=== PATIENT | male | born 1980 | race Caucasian/White ===

== ENCOUNTER → 2021-12-03 09:37 | Outpatient (BNV) | payer MEDICARE, MEDICAID, SELFPAY | PROVIDERS: PCP Family Medicine; Referring Provider Family Medicine; Visit Provider Internal Medicine Medical Oncology | DX: Z85.71 Personal history of Hodgkin lymphoma (principal); Z13.0 Encounter for screening for diseases of the blood and blood-forming organs and certain disorders involving the immune mechanism | CPT/HCPCS: 99204; 99213 ==

== ENCOUNTER 2022-01-17 11:13 | Outpatient (REF) | payer MEDICARE, MEDICAID, SELFPAY ==
[2022-01-17 13:55] LABS: MANUAL DIFF FLAG NO
[2022-01-17 14:03] LABS: Basophils Absolute Auto 0.1 X10*3/uL (0.0-0.2); Eosinophils Percent Auto 16.6 % (0-4); Hematocrit 46.4 % (42.0-52.0); Hemoglobin 15.8 g/dl (14.0-18.0); Imm Gran Abs Auto 0.02 X10*3/uL (0.00-0.03); Imm Gran Pct Auto 0.3 % (0.0-0.4); Lymphocytes Absolute Auto 1.2 X10*3/uL (1.2-4.9); Mean Corpuscular HGB Conc 34.1 g/dl (31.0-36.0); Mean Corpuscular Hemoglobin 28.2 pg (27.0-33.0); Mean Corpuscular Volume 82.9 fL (80.0-98.0); Monocytes Absolute Auto 0.6 X10*3/uL (0.1-1.2); Monocytes Percent Auto 9.9 % (2-11); Neutrophils Percent Auto 51.2 % (45-73); Platelet Count 249 X10*3/uL (160-400); Red Cell Distribution Width 11.9 % (11.0-16.0); White Blood Count 5.9 X10*3/uL (4.8-10.8)
[2022-01-17 14:19] LABS: Alanine Aminotransferase 26 U/L (0-40); Albumin Level 4.5 g/dL (3.5-5.0); Alkaline Phosphatase 65 U/L (39-117); Anion Gap 16 (12-20); Aspartate Amino Transferase 21 U/L (5-37); Bilirubin Total 0.5 mg/dL (0.0-1.0); Blood Urea Nitrogen 17 mg/dL (9-16); Calcium 9.3 mg/dL (8.4-10.2); Carbon Dioxide 25 mmol/L (22-29); Chloride 103 mmol/L (96-108); Cholesterol 203 mg/dL; Estimated Glomerular Filt Rate > 60; Glucose Fasting 92 mg/dL (60-99); HDL Cholesterol 40 mg/dL; LDL Cholesterol Calculated 137 mg/dl; Potassium 3.9 mmol/L (3.3-5.1); Sodium 140 mmol/L (135-145); Total Protein 7.6 g/dL (6.5-8.0); Triglycerides 130 mg/dL
[2022-01-17 14:42] LABS: Prostate Specific Antigen Scr 0.36 ng/mL (<0.05-4.0); TSH reflex Free T4 8.04 uIU/mL (0.32-4.0)
[2022-01-17 15:22] LABS: Free T4 (Free Thyroxine) 1.04 ng/dL (0.71-1.85)
== END 2022-01-17 11:14 | disposition home or self-care (01) ==
LOC: HO.WFDLDS 11:13
PROVIDERS: Visit Provider Family Medicine
DX: Z00.00 Encounter for general adult medical examination without abnormal findings (principal); Z12.5 Encounter for screening for malignant neoplasm of prostate
CPT/HCPCS: 36415; 80053; 80061; 84153; 84439; 84443; 85025

== ENCOUNTER 2022-01-20 11:20 | Outpatient (REF) | payer MEDICARE, MEDICAID, SELFPAY ==
[2022-01-20 11:40] LABS: Appearance Urine Turbid; Color Urine Yellow; Glucose Urine UA Negative (Negative); Leukocyte Esterase Urine Negative (Negative); Nitrite Urine Negative (Negative); PH 5.5 (5.0-9.0); Specific Gravity - Urine >= 1.030 (1.005-1.025); Urine Blood Negative (Negative); Urine Ketones Negative (Negative); Urine Protein Negative (Neg-Trace)
== END 2022-01-20 11:21 | disposition home or self-care (01) ==
LOC: HO.LNP 11:20
PROVIDERS: Visit Provider Family Medicine
DX: Z00.00 Encounter for general adult medical examination without abnormal findings (principal)
CPT/HCPCS: 81003

== ENCOUNTER 2022-01-24 10:02 | Outpatient (REF) | payer MEDICARE, MEDICAID, SELFPAY ==
[2022-01-24 12:24] LABS: Free T4 (Free Thyroxine) 0.97 ng/dL (0.71-1.85); Thyroid Stimulating Hormone 5.58 uIU/mL (0.32-4.0)
[2022-01-25 21:52] LABS: Triiodothyronine T3 Total 139 ng/dL (76-181)
== END 2022-01-24 10:03 | disposition home or self-care (01) ==
LOC: HO.WFDLDS 10:02
PROVIDERS: Visit Provider Family Medicine
DX: E03.9 Hypothyroidism, unspecified (principal)
CPT/HCPCS: 36415; 84439; 84443; 84480

== ENCOUNTER 2022-02-03 16:13 | Outpatient (REF) | payer MEDICARE, MEDICAID, SELFPAY ==
[2022-02-04 13:22] LABS: Influenza A PCR NEGATIVE (Negative); Influenza B PCR NEGATIVE (Negative); Resp Syncy Virus RNA Qual PCR NEGATIVE (Negative); SARS COV2 PCR INHOUSE NEGATIVE (Negative)
== END 2022-02-03 16:14 | disposition home or self-care (01) ==
LOC: HO.LAB 16:13
PROVIDERS: Visit Provider Nurse Practitioner Family
DX: Z20.822 Contact with and (suspected) exposure to COVID-19 (principal); R09.89 Other specified symptoms and signs involving the circulatory and respiratory systems
CPT/HCPCS: 0241U

== ENCOUNTER 2022-04-05 09:30 | Outpatient (REF) | payer MEDICARE, MEDICAID, SELFPAY ==
[2022-04-05 12:23] LABS: Lipase 22 U/L (8-78)
[2022-04-05 12:32] LABS: Free T4 (Free Thyroxine) 0.97 ng/dL (0.71-1.85); Thyroid Stimulating Hormone 11.11 uIU/mL (0.32-4.0)
[2022-04-07 07:18] LABS: Triiodothyronine T3 Total 126 ng/dL (76-181)
== END 2022-04-05 09:31 | disposition home or self-care (01) ==
LOC: HO.WFDLDS 09:30
PROVIDERS: Visit Provider Family Medicine
DX: E03.9 Hypothyroidism, unspecified (principal); R19.5 Other fecal abnormalities
CPT/HCPCS: 36415; 83690; 84439; 84443; 84480

== ENCOUNTER 2022-05-10 10:12 | Outpatient (REF) | payer MEDICARE, MEDICAID, SELFPAY ==
--- NOTE | ~2022-05-10 | US_ITS ---
EXAMINATION: US ABDOMEN LIMITED CLINICAL INFORMATION: Intra-abdominal and pelvic swelling, mass and lump, unspecified. COMPARISON: None TECHNIQUE: Real-time imaging of the left upper quadrant, inferior to the left costal margin. FINDINGS: Limited ultrasound imaging through the left upper quadrant abdominal wall reveals no visible mass, fluid collection or abnormal vascularity. US/US abdomen limited IMPRESSION: Unremarkable limited left upper quadrant abdominal ultrasound.
== END 2022-05-10 10:13 | disposition home or self-care (01) ==
LOC: HO.US 10:12
PROVIDERS: Visit Provider Family Medicine
DX: R19.00 Intra-abdominal and pelvic swelling, mass and lump, unspecified site (principal)
CPT/HCPCS: 76705

== ENCOUNTER 2022-06-14 14:11 | Outpatient (REF) | payer MEDICARE, MEDICAID, SELFPAY ==
--- NOTE | ~2022-06-14 | CT_ITS ---
EXAMINATION: CT SOFT TISSUE NECK WITH CONTRAST CLINICAL INFORMATION: Right-sided postauricular adenopathy. COMPARISON: None available. TECHNIQUE: Multidetector helical imaging was performed in the axial plane following the administration of 60 mL of Omnipaque 350 intravenous contrast. Multiple axial reformats and coronal/sagittal reconstructions were created the technologist workstation for review. This CT examination was performed using dose optimization techniques as appropriate, variously including the following: *Automated exposure control. *Adjustment of mA and/or kV according to patient size (this includes techniques or standardized protocols for targeted exams where dose is matched to indication/reason for exam; i.e. extremities or head). *Use of iterative reconstruction technique. DLP: 805 mGy-cm FINDINGS: No significant cutaneous thickening or subcutaneous inflammation. No discrete fluid collection within the deep tissues of the neck. The premaxillary, retromaxillary, pterygopalatine fossa, orbital apical, parapharyngeal, and prelaryngeal adipose tissue is maintained. Normal appearance of the parotid, submandibular, and thyroid glands. Scattered subcentimeter lymph nodes bilaterally, none of which are pathologically enlarged or abnormally enhancing. No demonstrated focal lesion or abnormal enhancement within the intrinsic tissues of the tongue or floor of mouth. Normal mucosal contours of the pharynx and larynx without abnormal enhancement. Normal appearance of the hyoid bone, thyroid cartilage, or cartilaginous trachea. The airways remains widely patent. No radiopaque foreign bodies. The atlantooccipital and atlantoaxial articulations remain well aligned. There is anatomic alignment of the vertebral bodies and posterior elements. No evidence of acute fracture or subluxation of the cervical spine. The vertebral body heights are maintained. Moderate degenerative disc disease at C5-C6 with disc-osteophyte complex formation. The remaining intervertebral disc spaces are maintained. No evidence of epidural collection. There is no prevertebral soft tissue swelling. Normal opacification of the cervical arterial and venous structures. The visualized portion of the skull base is without significant abnormalities. No demonstrated significant soft tissue abnormalities in the periauricular distributions. Mild to moderate mucosal thickening of the paranasal sinuses. Mild leftward nasal septal deviation. The mastoid air cells and middle ear cavities are clear. No demonstrated significant periapical odontogenic disease. CT Upper Chest: The visualized lung apices and upper mediastinum are within normal limits. CT/CT soft tissue neck w IV con IMPRESSION: No demonstrated focal lesion, collection, pathologically enlarged lymphadenopathy, or abnormal enhancement within the soft tissues of the neck.
[2022-06-14] MEDS: iohexoL 350 MG/ML 100 ML INFUS..BTL IV (14:59)
== END 2022-06-14 14:12 | disposition home or self-care (01) ==
LOC: HO.CT 14:11
PROVIDERS: PCP Family Medicine; Visit Provider Internal Medicine Medical Oncology
DX: Z85.71 Personal history of Hodgkin lymphoma (principal)
CPT/HCPCS: 70491; Q9967

== ENCOUNTER 2022-08-08 08:47 | Outpatient (REF) | payer MEDICARE, MEDICAID, SELFPAY ==
[2022-08-08 11:24] LABS: MANUAL DIFF FLAG NO
[2022-08-08 11:54] LABS: Basophils Percent Auto 0.6 % (0-2); Eosinophils Absolute Auto 0.7 X10*3/uL (0.0-0.4); Eosinophils Percent Auto 10.6 % (0-4); Hematocrit 46.1 % (42.0-52.0); Hemoglobin 15.5 g/dl (14.0-18.0); Imm Gran Abs Auto 0.02 X10*3/uL (0.00-0.03); Imm Gran Pct Auto 0.3 % (0.0-0.4); Lymphocytes Absolute Auto 1.3 X10*3/uL (1.2-4.9); Lymphocytes Percent Auto 19.4 % (20-40); Mean Corpuscular HGB Conc 33.6 g/dl (31.0-36.0); Mean Corpuscular Hemoglobin 28.6 pg (27.0-33.0); Mean Corpuscular Volume 85.1 fL (80.0-98.0); Monocytes Absolute Auto 0.6 X10*3/uL (0.1-1.2); Monocytes Percent Auto 8.9 % (2-11); Neutrophils Absolute Auto 3.9 x10*3/uL (2.0-8.3); Neutrophils Percent Auto 60.2 % (45-73); Platelet Count 252 X10*3/uL (160-400); Red Blood Count 5.42 X10*6/uL (4.60-5.80); Red Cell Distribution Width 12.2 % (11.0-16.0); White Blood Count 6.4 X10*3/uL (4.8-10.8)
[2022-08-08 12:32] LABS: Alanine Aminotransferase 28 U/L (0-40); Albumin Level 4.4 g/dL (3.5-5.0); Alkaline Phosphatase 57 U/L (39-117); Anion Gap 11 (12-20); Aspartate Amino Transferase 20 U/L (5-37); Bilirubin Total 0.6 mg/dL (0.0-1.0); Blood Urea Nitrogen 23 mg/dL (9-16); Calcium 9.2 mg/dL (8.4-10.2); Carbon Dioxide 26 mmol/L (22-29); Chloride 107 mmol/L (96-108); Estimated Glomerular Filt Rate > 60; Glucose Random 94 mg/dL (60-115); Potassium 3.9 mmol/L (3.3-5.1); Sodium 140 mmol/L (135-145); Total Protein 7.2 g/dL (6.5-8.0)
[2022-08-08 12:35] LABS: Free T4 (Free Thyroxine) 0.97 ng/dL (0.71-1.85); Thyroid Stimulating Hormone 5.73 uIU/mL (0.32-4.0)
[2022-08-09 07:53] LABS: Triiodothyronine T3 Total 116 ng/dL (76-181)
== END 2022-08-08 08:48 | disposition home or self-care (01) ==
LOC: HO.WFDLDS 08:47
PROVIDERS: Visit Provider Family Medicine
DX: Z00.00 Encounter for general adult medical examination without abnormal findings (principal); E03.9 Hypothyroidism, unspecified
CPT/HCPCS: 36415; 80053; 84439; 84443; 84480; 85025

== ENCOUNTER 2023-01-18 12:21 | Outpatient (REF) | payer MEDICARE, MEDICAID, SELFPAY ==
[2023-01-18 14:49] LABS: Thyroid Stimulating Hormone 5.08 uIU/mL (0.32-4.0)
[2023-01-20 02:14] LABS: Triiodothyronine T3 Total 119 ng/dL (76-181)
== END 2023-01-18 12:22 | disposition home or self-care (01) ==
LOC: HO.WFDLDS 12:21
PROVIDERS: Visit Provider Family Medicine
DX: E03.9 Hypothyroidism, unspecified (principal)
CPT/HCPCS: 36415; 84439; 84443; 84480

== ENCOUNTER 2023-01-18 12:31 | Outpatient (AMB) | payer MEDICARE, MEDICAID, SELFPAY ==
--- NOTE | 2023-01-18 12:37 | A.OFFPC_ITS ---
Vital Signs 01/18/23 12:38 Height 5 ft 10 in Weight 203 lb 2 oz BMI 29.1 BP 126/62 Blood Pressure Location Rt brachial Position Sitting Respiration 14 Pulse 98 Pulse Source Pulse Oximeter Temp 99.6 F Temp Source Temporal Artery Scan Pulse Oximetry (%) 98 Oxygen Delivery Method Room Air Intake Visit Reasons: sinus pressure, congestion, red itchy eyes Intake Note: Patient reports he has sinus pressure, congestion, red, itching and watering eyes, bilateral ears feel clogged and patient reports his nose feels stuffy as well. Patient reports these symptoms have been ongoing for about 7-10 days. Patient has tried Zytrec OTC with no relief. 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: No Accompanied by: Self / Same As Patient Allergies No Known Allergies Allergy (Verified 01/18/23 13:03) Medication List - Last Reconciled 01/18/23 by Estella Hayward CNP cetirizine (Zyrtec) 10 mg PO DAILY 30 days clotrimazole-betamethasone 1-0.05 % 1 appl topical BID 2 weeks fluticasone propionate 50 mcg/actuation (Flonase Allergy Relief) 1 spray intranasal Q12H levothyroxine 75 mcg PO DAILY 30 days trazodone 100 mg PO BEDTIME PRN Tobacco use date assessed: 01/18/23 HPI HPI Comments History of Present Illness Details 42-year-old male presents with complaint s of sinus pressure and congestion, red, itching, watery eyes, nasal congestion, and clogged right ear. He notes his symptoms have been ongoing for the past 7-10 days and refractory to OTC Zyrtec. Zyrtec have been effective in the past. His symptoms have been interfering with his sleep. He denies sick contacts. [facility] Medical History Hodgkin's lymphoma Surgical History Cornea replaced by transplant History of parotidectomy History of surgical removal of meniscus of knee Family History Maternal Grandmother Breast cancer Cervical cancer Paternal Grandfather Colon cancer Other Mental health disorder Social History Household Members: None Housing: Apartment Are you a primary patient care director to a significant other at home: No Do you presently have visiting nurse or other home services: No Patient Tobacco Use Status: Former Tobacco user e-Cigarette/Vaping Use: Never Used Second Hand Smoke Exposure: No service: No Current occupational status: disabled Current occupational exposures/hazards: No Cognitive needs: No Hearing needs: No Vision needs: No Questionnaire Thrive Questionnaire Date Thrive assessed: 10/26/21 SPIKE-7 AMB Questionnaire SPIKE-7 Date SPIKE - 7 assessed: 01/24/22 Source: Developed by Drs. Aamir Fitzgerald, Vanna Peters, Jelani Fox and colleagues, with an educational percy from [employer]. Review of Systems Const Details: Const Denies chills, Denies fatigue, Denies fever(s), Denies headache(s) and Denies weakness ENT Reports as per HPI Card Denies chest pain, Denies lightheadedness, Denies dyspnea and Denies other (Palpitations) Resp Denies cough, Denies dyspnea, Denies wheezing and Denies other ( shortness of breath) GI Denies abdominal pain, Denies melena, Denies hematochezia, Denies change in bowel habits, Denies dyspepsia and Denies nausea Denies hematuria and Denies dysuria Musc Denies abnormal gait, Denies myalgias, Denies arthralgias, Denies numbness and Denies tingling Skin/Breast Denies rash, Denies unusual bruising and Denies wounds Neuro Denies abnormal gait, Denies dizziness, Denies headache(s), Denies memory loss, Denies numbness, Denies Sensory deficit (Neuro), Denies tingling and Denies weakness Psych Denies anxiety, Denies depression, Denies memory loss Endo Denies cold intolerance, Denies fatigue, Denies heat intolerance, Denies polydipsia and Denies polyuria Aller/Immun Denies wheezing Physical exam (Primary Care) Vital Signs: Last Vital Signs Temp 99.6 F 01/18/23 12:38 Pulse 98 01/18/23 12:38 Resp 14 01/18/23 12:38 BP 126/62 01/18/23 12:38 Pulse Ox 98 01/18/23 12:38 Oxygen Delivery Method Room Air 01/18/23 12:38 BMI result Body Mass Index 29.1 Tobacco/Smoking Status: Tobacco use Status Tobacco use date assessed 01/18/23 01/18/23 12:45 Patient Tobacco Use Status Former Tobacco user 01/18/23 12:38 e-Cigarette/Vaping Use Never Used 01/18/23 12:38 Thrive Assessment: Date of Thrive Assessment Date Thrive assessed 10/26/21 01/18/23 12:38 Const Other: General: no acute distress and well developed Nutritional Appearance: well nourished Orientation/consciousness: patient oriented x3 HENMT Head is normocephalic Impacted cerumen to both ears occluding the TMs Nasal turbinates and oropharynx are pink and moist Sinuses are nontender with palpation No auricular or cervical lymphadenopathy Eyes General: appearance normal, both eyes and all related structures except for slight erythema to both conjunctiva Pupils: Equal, round and reactive pupils present EOM: EOMs intact bilaterally Resp Effort & Inspection: normal respiratory effort Auscultation: clear to auscultation bilaterally Cardio Rate: regular rate Rhythm: regular rhythm Heart sounds: S1 normal heart sound present, S2 normal heart sound present, no gallops, no murmurs and no rubs GI Palpation (GI): No Abdominal aortic bruit present, Soft to palpation, nontender, No hepatosplenomegaly present and No Rebound tenderness present Auscultation: normal bowel sounds General: Yes no CVA tenderness Back/Spine/Pelvis Back: no CVA tenderness Cervical Spine: cervical ROM normal and No Cervical spine tenderness Thoracic/Lumbar Spine: thoraco-lumbar ROM normal, No pain with thoraco-lumbar ROM, No thoracic spinal tenderness and No lumbar spinal tenderness Extrem General: Yes normal to inspection, No edema and No calf tenderness Skin General: warm and dry. Normal skin color. Normal skin turgor Lesions: no lesions Rashes: no rashes Trauma: no lacerations or abrasions Wounds: no wounds Nails: normal Neuro General: patient oriented x3, gait normal and no focal neuro deficit Cranial nerves: Yes Equal, round and reactive pupils present Cognition (Neuro): normal cognition Gait exam (Neuro): Normal gait present Sensory Exam: No Sensory deficit (Neuro) Psych Appearance: grossly normal Affect: normal affect Attitude: cooperative Thought process: Normal thought process present Assessment and Plan Assessment & Plan (1) Seasonal allergies: Code(s): J30.2 - Other seasonal allergic rhinitis Plan: Likely viral allergies though possible viral No exam evidence of bacterial infection Xyzal and Flonase as prescribed Rest Hydrate well -?Drink plenty of fluids.? Especially water. Tylenol or ibuprofen for muscle aches, headache, fever/discomfort Return with worsening or new symptoms Verbalized understanding and agreed with treatment plan. (2) Impacted cerumen of both ears: Code(s): H61.23 - Impacted cerumen, bilateral Plan: Impacted cerumen to both ears occluding the TMs Impaired right hearing is likely attributed to this Debrox ordered. Use as prescribed May return for cerumen removal if symptoms does not improve Verbalized understanding and agreed with treatment plan. Medications: New carbamide peroxide 6.5% (Debrox) 5 drps otic (ears) DAILY 4 days 15 mL 0RF levocetirizine (Xyzal) 5 mg PO DAILY 30 tabs 2RF 30 days Refilled fluticasone propionate 50 mcg/actuation (Flonase Allergy Relief) administer into each nostril 1 spray intranasal Q12H 16 grams 2RF Discontinued cetirizine (Zyrtec) Discontinued Reason: Doctor's Order 10 mg PO DAILY 30 tabs 0RF 30 days Coding Level of Care Code Est Pt Level 3 (33930) Diagnoses Seasonal allergies J30.2 Impacted cerumen of both ears H61.23
[2023-01-18 12:38] VITALS: BP 126/62; PULSE 98; RESP 14; TEMP 37.6; O2SAT 98; BMI 29.1
== END 2023-01-18 13:30 | disposition home or self-care (01) ==
PROVIDERS: PCP Family Medicine; Visit Provider Nurse Practitioner Family
DX: J30.2 Other seasonal allergic rhinitis (principal); H61.23 Impacted cerumen, bilateral
CPT/HCPCS: 99213

== ENCOUNTER 2023-01-27 14:20 | Outpatient (AMB) | payer MEDICARE, MEDICAID, SELFPAY ==
--- NOTE | 2023-01-27 13:53 | MHC.PC.OV ---
Intake Visit Reasons: f/u hypothyroidism Intake Note: Patient is here to follow up on hypothyroid today. He is concerned about hemorrhoids bleeding, he states it happens on and off. He would also like a refill of Clotrimazole and Betamethasone cream. Allergies No Known Allergies Allergy (Verified 01/27/23 13:54) Tobacco use date assessed: 01/27/23 Dental Screening Dental Screen Date: 01/27/23 Did you have a dental visit in the last 12 months?: Yes Did you have a dental problem in the last 6 months where you did not have access to dental care?: No Was dental information given to patient?: Patient has dentist HPI f/u hypothyroidism HPI Details 42 y/o male presents to f/u hypothyroidism via telemedicine. Labs were drawn 01/18/23. Reviewed labs with pt. TSH level improved from 5.73 to 5.08 uIU/mL but still elevated. He is on levothyroxine 75 mcg daily. Pt reports he has been worried about blood in stools. Pt states he does not have a GI specialist. [facility] Medical History (Updated 01/27/23 @ 13:58 by Yuli Bhandari [facility]) Hemorrhoids Hodgkin's lymphoma Surgical History History of parotidectomy Cornea replaced by transplant History of surgical removal of meniscus of knee Family History Maternal Grandmother Breast cancer Cervical cancer Paternal Grandfather Colon cancer Other Mental health disorder Social History Household Members: None Housing: Apartment Are you a primary home care attendant to a significant other at home: No Do you presently have visiting nurse or other home services: No Patient Tobacco Use Status: Former Tobacco user e-Cigarette/Vaping Use: Never Used Second Hand Smoke Exposure: No service: No Current occupational status: disabled Current occupational exposures/hazards: No Cognitive needs: No Hearing needs: No Vision needs: No Questionnaire Thrive Questionnaire Date Thrive assessed: 10/26/21 SPIKE-7 AMB Questionnaire SPIKE-7 Date SPIKE - 7 assessed: 01/24/22 Source: Developed by Drs. Aamir Fitzgerald, Vanna Peters, Jelani Fox and colleagues, with an educational percy from [employer]. Physical exam (Primary Care) Tobacco/Smoking Status: Tobacco use Status Tobacco use date assessed 01/27/23 01/27/23 13:56 Patient Tobacco Use Status Former Tobacco user 01/27/23 13:56 e-Cigarette/Vaping Use Never Used 01/27/23 13:56 Thrive Assessment: Date of Thrive Assessment Date Thrive assessed 10/26/21 01/27/23 13:56 Telehealth Telehealth Location of provider rendering services: practice address Location of patient: address on file Patient Identification confirmed using: Name, : Yes Telehealth method: voice only Patient verbally consented to treatment: Yes Patient verbally consented to billing insurance company: Yes Patient informed of any privacy concerns related to visit: Yes Minutes spent on Phone/Video with Pt.: 9 Assessment and Plan Assessment & Plan (1) Hypothyroidism: Code(s): E03.9 - Hypothyroidism, unspecified Plan: TSH is still elevated after increasing levothyroxine from 50 mcg to 75 mcg. Minimal change in fact. Will increase Levothyroxine to 100 mcg daily Repeat thyroid hormone levels in 2 months (2) Blood in stool: Code(s): K92.1 - Melena Plan: Referred to GI (3) Bloody stools: Code(s): K92.1 - Melena Orders: Orders Triiodothyronine T3 Total Today E03.9 - Hypothyroidism, unspecified Thyroid Stimulating Hormone Today E03.9 - Hypothyroidism, unspecified Free T4 (Free Thyroxine) Today E03.9 - Hypothyroidism, unspecified Basic Metabolic Panel Today E03.9 - Hypothyroidism, unspecified, Z00.00 - Encounter for general adult medical examination without abnormal findings Referrals Gastroenterology Referral K92.1 - Melena Medications: Changed From levothyroxine 75 mcg PO DAILY 30 days 30 tabs 2RF E03.9 - Hypothyroidism, unspecified To levothyroxine 100 mcg PO DAILY 30 days 30 tabs 2RF E03.9 - Hypothyroidism, unspecified Coding Level of Care Code Tele Est Pt Level 2 (19333) Diagnoses Hypothyroidism E03.9 Blood in stool K92.1 Bloody stools K92.1
== END 2023-01-27 15:00 ==
LOC: HO.HMGFM 14:20
PROVIDERS: PCP Family Medicine; Visit Provider Family Medicine
DX: E03.9 Hypothyroidism, unspecified (principal); K92.1 Melena
CPT/HCPCS: 99441

== ENCOUNTER 2023-02-08 13:40 | Outpatient (AMB) | payer MEDICARE, MEDICAID, SELFPAY ==
--- NOTE | 2023-02-08 13:49 | MHC.OFFVIS ---
Intake Vital Signs 02/08/23 13:51 Height 5 ft 10 in Weight 200 lb 9.93 oz BMI 28.8 BP 118/65 Blood Pressure Location Lt brachial Position Sitting Pulse 104 H Intake Visit Reasons: melena Intake Note: eDnilson presents in the office as a new patient for melena. CC: He states he is having blood in his stools. When he had a colonoscopy a year ago there was no polyps but he did have hemorrhoids. He has been bleeding every time he goes to the bathroom. Sometimes there is blood clots. Health Information Clerk Required: No Allergies No Known Allergies Allergy (Verified 02/08/23 13:53) HPI HPI Comments History of Present Illness Details This is a 42y.o M with PMH of Hodgkin's lymphoma in remission, anxiety, hypothyroidism who is here for rectal bleeding. Pt reports having intermittent rectal bleeding > a year which he describes as passing fresh blood on defecation. The stool itself is formed and brown. No abd pain, rectal pain or diarrhea with this. Notices an episode at least 1-2 times a month. Was seen at [facility] for the same complaint a year ago and underwent colonoscopy that showed internal hemorrhoids as well as one tubular adenoma but was otherwise normal. Most recent blood work without any anemia. COUNT INCLUDES THE [facility] Medical History (Updated 02/08/23 @ 15:38 by Brittany Denson MD) Hemorrhoids Hodgkin's lymphoma Surgical History Hx of colonoscopy History of parotidectomy Cornea replaced by transplant History of surgical removal of meniscus of knee Family History Maternal Grandmother Breast cancer Cervical cancer Paternal Grandfather Colon cancer Other Mental health disorder Social History Household Members: None Housing: Apartment Are you a primary school childcare attendant to a significant other at home: No Do you presently have visiting nurse or other home services: No Patient Tobacco Use Status: Former Tobacco user e-Cigarette/Vaping Use: Never Used Second Hand Smoke Exposure: No service: No Current occupational status: disabled Current occupational exposures/hazards: No Cognitive needs: No Hearing needs: No Vision needs: No Physical Exam Vital Signs: Last Vital Signs Pulse 104 H 02/08/23 13:51 BP 118/65 02/08/23 13:51 BMI result Body Mass Index 28.8 Gen appear: NAD HEENT: nonicteric, no cervical lymphadenopathy Chest: CTA CVS: Regular S1/S2 Abd: soft, nontender, nondistended, bowel sounds + Rectal deferred as had a colo a year ago with findings above. Ext: no peripheral edema Neuro: A/Ox3, noted to move all extremities spontaneously Psych: interacting appropriately Assessment & Plan Assessment & Plan (1) Bright red rectal bleeding: Code(s): K62.5 - Hemorrhage of anus and rectum (2) Hemorrhoids: Code(s): K64.9 - Unspecified hemorrhoids Plan Reassured pt that in the light of recent colo and clinical presentation, most consistent with hemorrhoidal bleeding. He was also reassured that it appears to be scant/small as he has not developed anemia despite having it intermittently for over a year. Recommendations: - Avoid constipation and straining - Increase hydration and fiber intake - Miralax as needed - Topical lidocaine-hydrocort to be applied OK x 10-14 days at bedtime - Follow up in 4 weeks, if sx persist despite the above, can consider referral to surgery Medications: New lidocaine HCl-hydrocortison ac 3-0.5 % 1 appl OK BEDTIME 14 days 14 grams 0RF polyethylene glycol 3350 (Miralax) 17 grams PO DAILY 238 grams 0RF Coding Level of Care Code New Pt Level 4 (92816) Diagnoses Bright red rectal bleeding K62.5 Hemorrhoids K64.9
[2023-02-08 13:51] VITALS: BP 118/65; PULSE 104; BMI 28.8
== END 2023-02-08 14:15 | disposition home or self-care (01) ==
PROVIDERS: PCP Family Medicine; Visit Provider Internal Medicine
DX: K62.5 Hemorrhage of anus and rectum (principal); K64.9 Unspecified hemorrhoids
CPT/HCPCS: 99204

== ENCOUNTER → 2023-02-08 13:40 | Outpatient (BNVA) | payer MEDICARE, MEDICAID, SELFPAY | PROVIDERS: PCP Family Medicine; Visit Provider Internal Medicine ==

== ENCOUNTER 2023-04-10 12:52 | Outpatient (REF) | payer MEDICARE, MEDICAID, SELFPAY ==
[2023-04-10 15:02] LABS: Anion Gap 12 (12-20); Blood Urea Nitrogen 20 mg/dL (9-16); Calcium 9.7 mg/dL (8.4-10.2); Carbon Dioxide 25 mmol/L (22-29); Chloride 108 mmol/L (96-108); Estimated Glomerular Filt Rate > 60; Glucose Random 111 mg/dL (60-115); Potassium 3.8 mmol/L (3.3-5.1); Sodium 141 mmol/L (135-145)
[2023-04-10 15:18] LABS: Free T4 (Free Thyroxine) 1.12 ng/dL (0.71-1.85)
[2023-04-11 13:04] LABS: Triiodothyronine T3 Total 116 ng/dL (76-181)
== END 2023-04-10 12:53 | disposition home or self-care (01) ==
LOC: HO.WFDLDS 12:52
PROVIDERS: Visit Provider Family Medicine
DX: Z00.00 Encounter for general adult medical examination without abnormal findings (principal); E03.9 Hypothyroidism, unspecified
CPT/HCPCS: 36415; 80048; 84439; 84443; 84480

== ENCOUNTER 2023-06-26 11:39 | Outpatient (AMB) | payer MEDICARE, MEDICAID, SELFPAY ==
[2023-06-26 11:49] VITALS: BP 118/68; PULSE 98; O2SAT 98; BMI 27.7
--- NOTE | 2023-06-26 11:49 | MHC.PC.OV ---
Vital Signs 06/26/23 11:49 Height 5 ft 10 in Weight 193 lb 2 oz BMI 27.7 BP 118/68 Blood Pressure Location Lt brachial Position Sitting Pulse 98 Pulse Oximetry (%) 98 Oxygen Delivery Method Room Air Intake Visit Reasons: follow up thyroid Intake Note: Patient is here for follow up on thyroid test. Patient is concerned about his bleeding hemhorroids, and a growth on his abdomen. Allergies No Known Allergies Allergy (Verified 06/26/23 11:54) Tobacco use date assessed: 06/26/23 Dental Screening Dental Screen Date: 06/26/23 Did you have a dental visit in the last 12 months?: Yes Did you have a dental problem in the last 6 months where you did not have access to dental care?: No Was dental information given to patient?: Patient has dentist HPI follow up thyroid HPI Details 43 y/o male presents to review thyroid hormone levels. Had increased levothyroxine from 50-75 mcg with minimal improvements so had increased this again to 100mcg daily. Labs were drawn 04/10/23. Reviewed labs with pt. TSH level improved from 5.08 to 2.10 uIU/mL. Pt has complaints of bleeding hemorrhoids. [facility] Medical History (Updated 06/26/23 @ 12:08 by Trey Alejandro) Hemorrhoids Hodgkin's lymphoma Surgical History Hx of colonoscopy History of parotidectomy Cornea replaced by transplant History of surgical removal of meniscus of knee Family History Maternal Grandmother Breast cancer Cervical cancer Paternal Grandfather Colon cancer Other Mental health disorder Social History (Updated 04/06/23 @ 12:31 by Gissel Erickson [facility]) Household Members: None Housing: Apartment Are you a primary body care manager to a significant other at home: No Do you presently have visiting nurse or other home services: No Patient Tobacco Use Status: Former Tobacco user e-Cigarette/Vaping Use: Never Used Second Hand Smoke Exposure: No service: No Current occupational status: disabled Current occupational exposures/hazards: No Sexual orientation: Unable to collect Gender identity: Unable to collect Cognitive needs: No Hearing needs: No Vision needs: No Questionnaire PHQ-9 Over the last 2 weeks, how often have you been bothered by any of the following problems? 1. Little interest or pleasure in doing things: nearly every day 2. Feeling down, depressed, or hopeless: several days 3. Trouble falling or staying asleep, or sleeping too much: nearly every day 4. Feeling tired or having little energy: not at all 5. Poor appetite or overeating: nearly every day 6. Feeling bad about yourself - or that you are a failure or have let yourself or your family down: several days 7. Trouble concentrating on things, such as reading the newspaper or watching television: not at all 8. Moving or speaking so slowly that other people could have noticed. Or the opposite - being so fidgety or restless that you have been moving around a lot more than usual: not at all 9. Thoughts that you would be better off or of hurting yourself in some way: not at all Total score: 11 Depression Screening Interpretation: Positive Depression Screening Done: Yes [id number] - PHQ-9 Billing: Yes Source: Developed by Drs. Aamir Fitzgerald, Vanna Peters, Jelani Fox and colleagues, with an educational percy from [employer]. Thrive Questionnaire Date Thrive assessed: 06/26/23 I am a: Patient What is your living situation today?: I have a steady place to live Within the past 12 months, did the food you bought not last and you didn't have the money to get more?: Never true Within the past 12 months, did you worry whether your food would run out before you got money to buy more?: Never true Do you have trouble paying for medicines?: No Do you have trouble getting transportation to medical appointments?: No Do you have trouble paying your heating and electricity bill?: Yes Do you have trouble taking care of your child, family member or friend?: No Do you have trouble with day-to-day activities such as bathing, preparing meals, shopping, managing finances, etc.?: No Are you currently unemployed and looking for a job?: No Are you interested in more education?: No THRIVE Score: 1 AUDIT C Alcohol Use Questionnaire (AUDIT-C) 1. How often do you have a drink containing alcohol?: Monthly or less 2. How many drinks containing alcohol do you have on a typical day when you are drinking?: 5 or 6 3. How often do you have six or more drinks on one occasion?: Less than monthly Total Score: 4 SPIKE-7 AMB Questionnaire SPIKE-7 Date SPIKE - 7 assessed: 06/26/23 Feeling nervous, anxious, or on edge: 1 = Several days Not being able to stop or control worryin = Nearly every day Worrying too much about different things: 3 = Nearly every day Trouble relaxin = Nearly every day Being so restless that it is hard to sit still: 1 = Several days Becoming easily annoyed or irritable: 1 = Several days Feeling afraid as if something awful might happen: 3 = Nearly every day Total SPIKE-7 score (0-4 normal; 5-9 mild; 10-14 moderate; 15-21 severe): 15 Source: Developed by Drs. Aamir Fitzgerald, Vanna Peters, Jelani Fox and colleagues, with an educational percy from [employer]. SPIKE-7 Assessment Billing SPIKE-7 Assessment Tool: SPIKE-7 Assessment 14240 Physical exam (Primary Care) BMI result Body Mass Index 27.7 Tobacco/Smoking Status: Tobacco use Status Tobacco use date assessed 06/26/23 06/26/23 12:04 Patient Tobacco Use Status Former Tobacco user 06/26/23 11:50 e-Cigarette/Vaping Use Never Used 06/26/23 11:50 PHQ-9: PHQ-9 Score PHQ-9: Total score 11 06/26/23 12:04 Depression Screening Interpretation: Positive Thrive Assessment: Date of Thrive Assessment Date Thrive assessed 06/26/23 06/26/23 12:04 Assessment and Plan Assessment & Plan (1) Hypothyroidism: Code(s): E03.9 - Hypothyroidism, unspecified Plan: Thyroid?hormone?labs?all?within?normal?range?now. Continue?levothyroxine?100?mcg?daily (2) Hemorrhoids: Code(s): K64.9 - Unspecified hemorrhoids Plan: Ongoing?hemorrhoids?with?bright?red?blood?per?rectum?and?some?clots. He?has?seen?Gastroenterology?and?follow?their?recommendations?but?he?would?like?more?definitive?care. Referred?to?general?surgeon (3) Anxiety with depression: Code(s): F41.8 - Other specified anxiety disorders Plan: Significant?anxiety?depression. Patient?declines?referral?to?therapy Patient?declines?medication I?let?him?know?that?he?can?readdress?this?at?any?time. Plan Patient?has had?an?ultrasound?for?a?superficial?lump?at?left?abdomen. Ultrasound?did?not?show?any?abnormalities. Re-evaluation?today?with?Valsalva?maneuver shows?that?lump?is?likely?muscle?as?it?does?contract?with?his?abdominal?muscles. He?will?let?me?know?if?this?is?changing?in?some?weight. Orders: Orders Lipid Panel Today Z00.00 - Encounter for general adult medical examination without abnormal findings Microalbumin, Random (w Creat) Today I10 - Essential (primary) hypertension Prostate Specific Antigen Scr Today Z12.5 - Encounter for screening for malignant neoplasm of prostate UA and rflx microscopic Today Z00.00 - Encounter for general adult medical examination without abnormal findings Triiodothyronine T3 Total Today E03.9 - Hypothyroidism, unspecified Thyroid Stimulating Hormone Today E03.9 - Hypothyroidism, unspecified Comprehensive [place]. Panel Fast Today Z00.00 - Encounter for general adult medical examination without abnormal findings Complete Blood Count Auto Diff Today Z00.00 - Encounter for general adult medical examination without abnormal findings Free T4 (Free Thyroxine) Today E03.9 - Hypothyroidism, unspecified Referrals General Surgery Referral K64.9 - Unspecified hemorrhoids Coding Level of Care Code Est Pt Level 4 (41256) Diagnoses Hypothyroidism E03.9 Hemorrhoids K64.9 Anxiety with depression F41.8 Additional Codes SPIKE-7 Assessment Billing - SPIKE-7 Assessment Tool: SPIKE-7 Assessment 54911 ([id number])
== END 2023-06-26 12:22 | disposition home or self-care (01) ==
PROVIDERS: PCP Family Medicine; Visit Provider Family Medicine
DX: E03.9 Hypothyroidism, unspecified (principal); K64.9 Unspecified hemorrhoids; F41.8 Other specified anxiety disorders
CPT/HCPCS: 99214

== ENCOUNTER 2023-07-20 13:56 | Outpatient (AMB) | payer MEDICARE, MEDICAID, SELFPAY ==
--- NOTE | 2023-07-20 14:08 | A.OFFVIS_ITS ---
Intake Vital Signs 07/20/23 14:17 Height 5 ft 10 in Weight 198 lb BMI 28.4 BP 116/68 Blood Pressure Location Rt brachial Position Sitting Pulse 91 Intake Visit Reasons: bleeding hemorrhoids Intake Note: This patient presents for an assessment for bleeding hemorrhoids. On and off for 2 yrs. Patient c/o; moves bowels fine. Denies constipation. Had colonoscopy . Hx of Hodgkin's lymphoma. 2nd concern: nodule on LUQ. Present for 2yrs. Enlarging. Denies pain, tenderness. 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 He describes seeing small amounts of bright blood per rectum on wiping with bowel movements. He does state that for times, there would be a lot of blood and this would be seen on the toilet bowl. This does not happen very often and he says that with this probably once a week. This 1st started maybe about 2-3 years ago. He denies any pain with bowel movements. He denies feeling a lump outside his anus. He denies any constipation. He had a colonoscopy last year which was unremarkable. He has a history of Hodgkin's lymphoma and is being followed by oncologist service He also says that he has a small lump on the abdominal wall on the left side. [facility] Medical History (Updated 07/20/23 @ 14:24 by Kirt Roberto MD) Lipoma of abdominal wall Bleeding hemorrhoids Hemorrhoids Hodgkin's lymphoma Surgical History Hx of colonoscopy History of parotidectomy Cornea replaced by transplant History of surgical removal of meniscus of knee Family History Maternal Grandmother Breast cancer Cervical cancer Paternal Grandfather Colon cancer Other Mental health disorder Social History Household Members: None Housing: Apartment Are you a primary healthcare business analyst to a significant other at home: No Do you presently have visiting nurse or other home services: No Patient Tobacco Use Status: Former Tobacco user e-Cigarette/Vaping Use: Never Used Second Hand Smoke Exposure: No service: No Current occupational status: disabled Current occupational exposures/hazards: No Sexual orientation: Unable to collect Gender identity: Unable to collect Cognitive needs: No Hearing needs: No Vision needs: No Review of Systems Const Denies chills and Denies fever(s) Card Denies chest pain, Denies dyspnea and Denies dyspnea on exertion Resp Denies cough, Denies dyspnea and Denies dyspnea on exertion GI Reports hematochezia and Denies change in bowel habits Denies hematuria and Denies difficulty urinating Musc Denies back pain and Denies limited range of motion Neuro Denies focal weakness and Denies convulsions Psych Denies depression and Denies mood swings Physical Exam Const General: comfortable and no acute distress Orientation/consciousness: patient oriented x3 Neck Neck: Yes no lymphadenopathy Resp Auscultation: clear to auscultation bilaterally Cardio Rhythm: regular rhythm GI Other: Abdominal wall lipoma about 1 cm on left, well defined Palpation (GI): Soft to palpation, nontender and no guarding Neuro General: patient oriented x3 Office Procedures Anoscopy He was in yousif-knife position. The anoscope was gently inserted. A full examination of the anal canal was done. There was note of a prominent hemorrhoidal column, mix of internal external on the right posterior. This seemed to bleed easily. There were no other lesions. There was no ulceration or fissure. There was no induration on digital exam. He had some small hemorrhoids on the left side. [id number] Assessment & Plan Assessment & Plan (1) Bleeding hemorrhoids: Code(s): K64.9 - Unspecified hemorrhoids Plan: Anoscopy shows an internal external hemorrhoidal column on the right posterior. This seems to bleed easily. This is likely source of his blood per rectum. I explained to him the option of proceeding with hemorrhoidectomy. I discussed the risks including but not limited to bleeding and infections as well as postop pain. I explained the benefits and alternatives I also described to him what to expect postoperatively. He says he wants to proceed with hemorrhoidectomy. He says that the bleeding which can be have a times has been bothering him. (2) Lipoma of abdominal wall: Code(s): D17.1 - Benign lipomatous neoplasm of skin and subcutaneous tissue of trunk Plan: He has this small lipomatous mass, about 1 cm in diameter on the abdominal wall on the left side. I explained the technique of excision which may be done under local anesthesia. I reviewed the risks including but not limited to bleeding and infections, as well as the benefits and alternatives. He says he is thinking about having this excised. We will schedule this after his hemorrhoidectomy as an office procedure. Coding Level of Care Code New Pt Level 3 (98141) Diagnoses Bleeding hemorrhoids K64.9 Lipoma of abdominal wall D17.1 CPT Codes Details - CPT: 16536-[id number] ([id number])
[2023-07-20 14:17] VITALS: BP 116/68; PULSE 91; BMI 28.4
== END 2023-07-20 14:55 | disposition home or self-care (01) ==
PROVIDERS: PCP Family Medicine; Visit Provider Surgery
DX: K64.9 Unspecified hemorrhoids (principal); D17.1 Benign lipomatous neoplasm of skin and subcutaneous tissue of trunk
CPT/HCPCS: 46600; 99203

== ENCOUNTER → 2023-07-20 13:56 | Outpatient (BNVA) | payer MEDICARE, MEDICAID, SELFPAY | PROVIDERS: PCP Family Medicine; Visit Provider Surgery | DX: K64.9 Unspecified hemorrhoids (principal); D17.1 Benign lipomatous neoplasm of skin and subcutaneous tissue of trunk | CPT/HCPCS: 46600; 99202 ==

== ENCOUNTER → 2023-08-30 14:14 | Outpatient (BNVA) | payer MEDICARE, MEDICAID, SELFPAY | PROVIDERS: PCP Family Medicine; Visit Provider Surgery ==

== ENCOUNTER 2023-09-07 14:50 | Outpatient (AMB) | payer MEDICARE, MEDICAID, SELFPAY ==
--- NOTE | 2023-09-07 14:50 | A.OFFVIS_ITS ---
Vital Signs 09/07/23 14:55 Height 5 ft 10 in Weight 193 lb BMI 27.7 BP 132/70 Blood Pressure Location Rt brachial Position Sitting Pulse 90 Intake Visit Reasons: re-discuss lipoma asd wall Intake Note: This patient presents for an assessment to re-discuss lipoma of abdominal wall. Pt c/o; reports no complaints. 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 Accompanied by: Self / Same As Patient Allergies No Known Allergies Allergy (Verified 09/07/23 14:55) Medication List - Last Reconciled 09/07/23 by Kirt Roberto MD clotrimazole-betamethasone 1-0.05 % 1 appl topical BID 2 weeks fluticasone propionate 50 mcg/actuation (Flonase Allergy Relief) 1 spray intranasal Q12H levocetirizine (Xyzal) 5 mg PO DAILY 30 days levothyroxine 100 mcg PO DAILY 30 days lidocaine HCl-hydrocortison ac 3-0.5 % 1 appl [place] BEDTIME 14 days trazodone 100 mg PO BEDTIME PRN HPI HPI re-discuss lipoma asd wall: Details: He is here to have his lipoma on the abdominal wall removed. He is worried about this because of a history of lymphoma. He denies any increased in size. He denies any skin changes He was scheduled to have hemorrhoidectomy last month but he held off on this as he says that he is thinking of having a colonoscopy done 1st. [facility] Medical History Lipoma of abdominal wall Bleeding hemorrhoids Hemorrhoids Hodgkin's lymphoma Surgical History Hx of colonoscopy History of parotidectomy Cornea replaced by transplant History of surgical removal of meniscus of knee Family History Maternal Grandmother Breast cancer Cervical cancer Paternal Grandfather Colon cancer Other Mental health disorder Social History Household Members: None Housing: Apartment Are you a primary healthcare interpreter to a significant other at home: No Do you presently have visiting nurse or other home services: No Patient Tobacco Use Status: Former Tobacco user e-Cigarette/Vaping Use: Never Used Second Hand Smoke Exposure: No service: No Current occupational status: disabled Current occupational exposures/hazards: No Sexual orientation: Unable to collect Gender identity: Unable to collect Cognitive needs: No Hearing needs: No Vision needs: No Review of Systems Const Denies chills and Denies fever(s) Card Denies chest pain, Denies dyspnea and Denies dyspnea on exertion Resp Denies cough, Denies dyspnea and Denies dyspnea on exertion GI Denies hematochezia and Denies change in bowel habits Denies hematuria and Denies difficulty urinating Musc Denies back pain and Denies limited range of motion Neuro Denies focal weakness and Denies convulsions Psych Reports anxiety, Denies depression and Denies mood swings Physical Exam Vital Signs: Last Vital Signs Pulse 90 09/07/23 14:55 BP 132/70 09/07/23 14:55 BMI result Body Mass Index 27.7 Const General: comfortable and no acute distress Orientation/consciousness: patient oriented x3 Neck Neck: Yes no lymphadenopathy Resp Auscultation: clear to auscultation bilaterally Cardio Rhythm: regular rhythm GI Other: Small, lipomatous mass may be about 1 cm in size on the abdominal wall on the left side Palpation (GI): Soft to palpation, nontender and no guarding Neuro General: patient oriented x3 Assessment & Plan Assessment & Plan (1) Lipoma of abdominal wall: Code(s): D17.1 - Benign lipomatous neoplasm of skin and subcutaneous tissue of trunk Category: Medical Plan: He has this lipoma on the abdominal wall as described above. He wants this removed. I explained the technique of excision under local anesthesia. I reviewed the risks including but not limited to bleeding and infections, as well as the benefits and alternatives and he wants to proceed. This will be done on his next visit in the office He says he wants to hold off hemorrhoidectomy for now. He what to discuss colonoscopy primary care physician. Coding Level of Care Code Est Pt Level 3 (79950) Diagnoses Lipoma of abdominal wall D17.1
[2023-09-07 14:55] VITALS: BP 132/70; PULSE 90; BMI 27.7
== END 2023-09-07 15:24 | disposition home or self-care (01) ==
PROVIDERS: PCP Family Medicine; Visit Provider Surgery
DX: D17.1 Benign lipomatous neoplasm of skin and subcutaneous tissue of trunk (principal)
CPT/HCPCS: 99213

== ENCOUNTER → 2023-09-07 14:50 | Outpatient (BNVA) | payer MEDICARE, MEDICAID, SELFPAY | PROVIDERS: PCP Family Medicine; Visit Provider Surgery | DX: D17.1 Benign lipomatous neoplasm of skin and subcutaneous tissue of trunk (principal) | CPT/HCPCS: 99212 ==

== ENCOUNTER 2024-04-27 13:01 | Outpatient (REF) | payer MEDICARE, MEDICAID, SELFPAY ==
[2024-04-27 15:11] LABS: MANUAL DIFF FLAG NO
[2024-04-27 15:15] LABS: Basophils Absolute Auto 0.1 X10*3/uL (0.0-0.2); Basophils Percent Auto 1.1 % (0-2); Eosinophils Absolute Auto 0.5 X10*3/uL (0.0-0.4); Eosinophils Percent Auto 10.1 % (0-4); Hematocrit 43.4 % (42.0-52.0); Imm Gran Abs Auto 0.01 X10*3/uL (0.00-0.03); Imm Gran Pct Auto 0.2 % (0.0-0.4); Lymphocytes Absolute Auto 1.2 X10*3/uL (1.2-4.9); Lymphocytes Percent Auto 25.4 % (20-40); Mean Corpuscular HGB Conc 34.6 g/dl (31.0-36.0); Mean Corpuscular Hemoglobin 29.3 pg (27.0-33.0); Mean Corpuscular Volume 84.8 fL (80.0-98.0); Mean Platelet Volume 10.4 fL (9.4-12.4); Monocytes Absolute Auto 0.4 X10*3/uL (0.1-1.2); Monocytes Percent Auto 8.3 % (2-11); Neutrophils Absolute Auto 2.5 x10*3/uL (2.0-8.3); Neutrophils Percent Auto 54.9 % (45-73); Platelet Count 215 X10*3/uL (160-400); Red Blood Count 5.12 X10*6/uL (4.60-5.80); Red Cell Distribution Width 11.9 % (11.0-16.0); White Blood Count 4.6 X10*3/uL (4.8-10.8)
[2024-04-27 15:22] LABS: Appearance Urine Turbid; Color Urine Yellow; Glucose Urine UA Negative (Negative); Leukocyte Esterase Urine Negative (Negative); Nitrite Urine Negative (Negative); PH 5.5 (5.0-9.0); Specific Gravity - Urine >= 1.030 (1.005-1.025); Urine Blood Negative (Negative); Urine Ketones Negative (Negative); Urine Protein Negative (Neg-Trace)
[2024-04-27 15:41] LABS: Albumin Level 4.3 g/dL (3.5-5.0); Anion Gap 13 (12-20); Aspartate Amino Transferase 27 U/L (5-37); Bilirubin Total 0.5 mg/dL (0.0-1.0); Blood Urea Nitrogen 27 mg/dL (9-16); Calcium 9.1 mg/dL (8.4-10.2); Carbon Dioxide 24 mmol/L (22-29); Chloride 110 mmol/L (96-108); Cholesterol 160 mg/dL (<200); Estimated Glomerular Filt Rate > 60; Glucose Fasting 96 mg/dL (60-99); HDL Cholesterol 50 mg/dL (>40); LDL Cholesterol Calculated 97 mg/dL (<100); Potassium 4.1 mmol/L (3.3-5.1); Sodium 143 mmol/L (135-145); Total Protein 7.3 g/dL (6.5-8.0); Triglycerides 65 mg/dL (<150)
[2024-04-27 15:42] LABS: Creatinine Urine 154.35 mg/dL; Microalbum/Creatinine Ratio Ur 6.4 ug/mg cr (<30)
[2024-04-27 15:56] LABS: Prostate Specific Antigen Scr 0.43 ng/mL (<0.05-4.0)
[2024-04-27 15:57] LABS: Free T4 (Free Thyroxine) 1.44 ng/dL (0.71-1.85); Thyroid Stimulating Hormone 0.01 uIU/mL (0.32-4.0)
[2024-04-27 17:10] LABS: Alanine Aminotransferase 24 U/L (0-40); Alkaline Phosphatase 54 U/L (39-117)
[2024-04-29 12:19] LABS: Triiodothyronine T3 Total 161 ng/dL (76-181)
== END 2024-04-27 13:02 | disposition home or self-care (01) ==
LOC: HO.HMGCLDS 13:01
PROVIDERS: PCP Family Medicine; Visit Provider Family Medicine
DX: Z00.00 Encounter for general adult medical examination without abnormal findings (principal); I10 Essential (primary) hypertension; E03.9 Hypothyroidism, unspecified; Z12.5 Encounter for screening for malignant neoplasm of prostate
CPT/HCPCS: 36415; 80053; 80061; 81003; 82043; 82570; 84153; 84439; 84443; 84480; 85025

== ENCOUNTER 2024-04-29 12:04 | Outpatient (AMB) | payer MEDICARE, MEDICAID, SELFPAY ==
--- NOTE | 2024-04-29 12:26 | A.OFFPC_ITS ---
Vital Signs 04/29/24 12:29 Height 5 ft 10 in Weight 186 lb 2 oz BMI 26.7 BP 120/62 Blood Pressure Location Lt brachial Position Sitting Respiration 16 Pulse 79 Pulse Source Pulse Oximeter Temp 97.9 F Temp Source Oral Pulse Oximetry (%) 98 Oxygen Delivery Method Room Air Intake Visit Reasons: PE Intake Note: PE Allergies No Known Allergies Allergy (Verified 04/29/24 12:28) Tobacco use date assessed: 04/29/24 Dental Screening Dental Screen Date: 04/29/24 Did you have a dental visit in the last 12 months?: Yes Did you have a dental problem in the last 6 months where you did not have access to dental care?: No Was dental information given to patient?: Patient has dentist HPI PE HPI Details 43 y/o male presents for an extended exa m with f/u labs and health maintenance. Labs drawn 04/27/24. Reviewed labs with pt. Triglycerides 65. TC 160. LDL 97. HDL 50. TSH low at 0.01. He is on levothyroxine 100mcg daily. Had been following up with gen surgery for hemorrhoids, lipoma of abd. wall. He notes he does not plan to do surgery as he does not experience much symptoms. Gets some exercise. [facility] Medical History (Updated 04/29/24 @ 13:22 by Artie Campbell MD) Lipoma of abdominal wall Bleeding hemorrhoids Hemorrhoids Hodgkin's lymphoma Surgical History (Updated 09/26/23 @ 11:30 by Fina Moreau Greri) Status post excision of lipoma Hx of colonoscopy History of parotidectomy Cornea replaced by transplant History of surgical removal of meniscus of knee Family History Maternal Grandmother Breast cancer Cervical cancer Paternal Grandfather Colon cancer Other Mental health disorder Social History Household Members: None Housing: Apartment Are you a primary career services director to a significant other at home: No Do you presently have visiting nurse or other home services: No Patient Tobacco Use Status: Former Tobacco user e-Cigarette/Vaping Use: Never Used Second Hand Smoke Exposure: No service: No Current occupational status: disabled Current occupational exposures/hazards: No Sexual orientation: Unable to collect Gender identity: Unable to collect Cognitive needs: No Hearing needs: No Vision needs: No Questionnaire PHQ-9 Over the last 2 weeks, how often have you been bothered by any of the following problems? 1. Little interest or pleasure in doing things: not at all 2. Feeling down, depressed, or hopeless: not at all 3. Trouble falling or staying asleep, or sleeping too much: several days 4. Feeling tired or having little energy: several days 5. Poor appetite or overeating: not at all 6. Feeling bad about yourself - or that you are a failure or have let yourself or your family down: not at all 7. Trouble concentrating on things, such as reading the newspaper or watching television: not at all 8. Moving or speaking so slowly that other people could have noticed. Or the opposite - being so fidgety or restless that you have been moving around a lot more than usual: not at all 9. Thoughts that you would be better off or of hurting yourself in some way: not at all Total score: 2 Depression Screening Interpretation: Negative Depression Screening Done: Yes 11569 - PHQ-9 Billing: Yes Source: Developed by Drs. Aamir Fitzgerald, Vanna Peters, Jelani Fox and colleagues, with an educational percy from [employer]. Thrive Questionnaire Date Thrive assessed: 04/29/24 I am a: Patient What is your living situation today?: I have a steady place to live Within the past 12 months, did the food you bought not last and you didn't have the money to get more?: I choose not to answer this question Within the past 12 months, did you worry whether your food would run out before you got money to buy more?: I choose not to answer this question Do you have trouble paying for medicines?: No Do you have trouble getting transportation to medical appointments?: No Do you have trouble paying your heating and electricity bill?: No Do you have trouble taking care of your child, family member or friend?: No Do you have trouble with day-to-day activities such as bathing, preparing meals, shopping, managing finances, etc.?: No Are you currently unemployed and looking for a job?: I choose not to answer this question Are you interested in more education?: I choose not to answer this question Please select the resources that you would like help with: None Currently or been in a relationship where the following occur: No concerns reported THRIVE Score: 0 AUDIT C Alcohol Use Questionnaire (AUDIT-C) 1. How often do you have a drink containing alcohol?: Never Total Score: 0 SPIKE-7 AMB Questionnaire SPIKE-7 Date SPIKE - 7 assessed: 04/29/24 Feeling nervous, anxious, or on edge: 1 = Several days Not being able to stop or control worryin = Several days Worrying too much about different things: 1 = Several days Trouble relaxin = Several days Being so restless that it is hard to sit still: 1 = Several days Becoming easily annoyed or irritable: 1 = Several days Feeling afraid as if something awful might happen: 1 = Several days Total SPIKE-7 score (0-4 normal; 5-9 mild; 10-14 moderate; 15-21 severe): 7 Source: Developed by Drs. Aamir Fitzgerald, Vanna Peters, Jelani Fox and colleagues, with an educational percy from [employer]. SPIKE-7 Assessment Billing SPIKE-7 Assessment Tool: SPIKE-7 Assessment 16908 Review of Systems Const Denies chills, Denies fatigue, Denies fever(s), Denies headache(s) and Denies weakness Eyes Denies change in vision ENT Denies dizziness, Denies headache(s), Denies hearing loss, Denies nasal congestion, Denies sinus pain, Denies sinus pressure and Denies sore throat Card Denies chest pain, Denies lightheadedness, Denies dyspnea and Denies other (palpitations) Resp Denies cough, Denies dyspnea and Denies wheezing GI Denies abdominal pain, Denies melena, Denies hematochezia, Denies change in bowel habits, Denies dyspepsia and Denies nausea Denies hematuria and Denies dysuria Musc Denies abnormal gait, Denies myalgias, Denies arthralgias, Denies numbness and Denies tingling Skin/Breast Denies rash, Denies unusual bruising and Denies wounds Neuro Denies abnormal gait, Denies dizziness, Denies headache(s), Denies memory loss, Denies numbness, Denies Sensory deficit (Neuro), Denies tingling and Denies weakness Psych Denies anxiety, Denies depression and Denies memory loss Endo Denies cold intolerance, Denies fatigue, Denies heat intolerance, Denies polydipsia and Denies polyuria Roland/Lymph Denies easy bleeding and Denies easy bruising Aller/Immun Denies wheezing Physical exam (Primary Care) Vital Signs: Last Vital Signs Temp 97.9 F 04/29/24 12:29 Pulse 79 04/29/24 12:29 Resp 16 04/29/24 12:29 BP 120/62 04/29/24 12:29 Pulse Ox 98 04/29/24 12:29 Oxygen Delivery Method Room Air 04/29/24 12:29 BMI result Body Mass Index 26.7 Tobacco/Smoking Status: Tobacco use Status Tobacco use date assessed 04/29/24 04/29/24 12:31 Patient Tobacco Use Status Former Tobacco user 04/29/24 12:31 e-Cigarette/Vaping Use Never Used 04/29/24 12:31 PHQ-9: PHQ-9 Score PHQ-9: Total score 2 04/29/24 13:02 Depression Screening Interpretation: Negative Thrive Assessment: Date of Thrive Assessment Date Thrive assessed 04/29/24 04/29/24 12:31 Currently or been in a relationship where the following occur: No concerns reported Const General: no acute distress, well developed, alert and awake Nutritional Appearance: well nourished Orientation/consciousness: patient oriented x3 HENMT Head: Yes normocephalic and Yes atraumatic Ears: hearing grossly normal bilaterally and TM's normal bilaterally General nose exam: Normal external nose present and Normal nares present Mouth: Normal oral and palatal mucosa present and moist mucous membranes Teeth and gingiva: dentition normal Throat: Yes posterior oropharynx normal Eyes General: appearance normal, both eyes and all related structures Pupils: Equal, round and reactive pupils present and Pupil accommodation reflex normal EOM: EOMs intact bilaterally Neck Neck: Yes normal visual inspection, Yes no lymphadenopathy and Yes trachea midline Thyroid: Thyroid normal Carotids: no bruits Lymphatic: no lymphadenopathy noted Chest Chest palpation & inspection: normal inspection of the chest Resp Effort & Inspection: normal respiratory effort Auscultation: clear to auscultation bilaterally Cardio Rate: regular rate Rhythm: regular rhythm Heart sounds: S1 normal heart sound present, S2 normal heart sound present, no gallops, no murmurs and no rubs Bruits: no abdominal aortic bruits and no carotid bruits GI Palpation (GI): No Abdominal aortic bruit present, Soft to palpation, nontender, No hepatosplenomegaly present and No Rebound tenderness present Auscultation: normal bowel sounds General: Yes no CVA tenderness Back/Spine/Pelvis Back: no CVA tenderness Cervical Spine: cervical ROM normal and No Cervical spine tenderness Thoracic/Lumbar Spine: thoraco-lumbar ROM normal, No pain with thoraco-lumbar ROM, No thoracic spinal tenderness and No lumbar spinal tenderness Skin Lesions: no lesions Rashes: no rashes Trauma: no lacerations or abrasions Wounds: no wounds Nails: normal Neuro General: patient oriented x3 Cranial nerves: Yes Equal, round and reactive pupils present Cognition (Neuro): normal cognition Gait exam (Neuro): Normal gait present Motor exam (neuro): 5/5 motor strength present throughout Sensory Exam: No Sensory deficit (Neuro) Deep tendon reflexes (DTR's): Right patellar reflex intensity grade: 2+ and Left patellar reflex intensity grade: 2+ Extrem General: Yes normal to inspection and No edema Psych Appearance: grossly normal Affect: normal affect Attitude: cooperative Thought process: Normal thought process present Coding Level of Care Code Est Pt Level 4 (00956) Diagnoses Hypothyroidism E03.9 Blood in stool K92.1 Cerumen impaction H61.20 Right otitis media H66.91 Screening for prostate cancer Z12.5 Adult general medical exam Z00.00 Additional Codes SPIKE-7 Assessment Billing - SPIKE-7 Assessment Tool: SPIKE-7 Assessment 89335 ([id number]) PHQ-9 - 62412 - PHQ-9 Billing: Yes ([id number]) Assessment & Plan Assessment & Plan (1) Hypothyroidism: Code(s): E03.9 - Hypothyroidism, unspecified Category: Medical Plan: TSH?is?suppressed?though?T4?and?T3?are?okay Will?recheck in?6-8?weeks If?TSH?still?suppressed,?will?ease?up?on?levothyroxine (2) Blood in stool: Code(s): K92.1 - Melena Category: Medical Plan: History?of?hemorrhoids?and?blood?in?stools?likely?due?to?this. Patient?wants?referral?to?GI?to?rule?out?any?other?causes-referral?made Advised?he?well?hydrated?and?keep?stools?soft Follow-up?with?GI (3) Cerumen impaction: Code(s): H61.20 - Impacted cerumen, unspecified ear Category: Medical Plan: Mild?cerumen?impaction?at?right?ear He?has?tried?Debrox?drops Now?s/p?irrigation Wax?removed?but?now?reveals?infection-see?below (4) Right otitis media: Code(s): H66.91 - Otitis media, unspecified, right ear Category: Medical Plan: After?irrigation?of?wax?impaction, Patient?has?erythema to?show?erythema?with?purulent?effusion?behind?membrane Will?send?script?for?amoxicillin. (5) Screening for prostate cancer: Code(s): Z12.5 - Encounter for screening for malignant neoplasm of prostate Category: Medical Plan: PSA?was?within?normal?range Will?continue?annual?screening (6) Adult general medical exam: Code(s): Z00.00 - Encounter for general adult medical examination without abnormal fin dings Category: Medical Plan: 43-year-old?male?presents?for?an?extended?exam Encouraged?healthy?diet?with?active?lifestyle?and?of?exercise Orders: Orders Thyroid Stimulating Hormone Today E03.9 - Hypothyroidism, unspecified Basic Metabolic Panel Today E03.9 - Hypothyroidism, unspecified, Z00.00 - Encounter for general adult medical examination without abnormal findings Triiodothyronine T3 Total Today E03.9 - Hypothyroidism, unspecified Free T4 (Free Thyroxine) Today E03.9 - Hypothyroidism, unspecified Medications: New amoxicillin 500 mg PO Q12H 10 days 20 tabs 0RF Changed From trazodone 100 mg PO BEDTIME PRN 30 tabs 0RF for insomnia To trazodone 100 mg PO BEDTIME 30 days PRN 30 tabs 3RF for insomnia Refilled clotrimazole-betamethasone 1-0.05 % 1 appl topical BID 2 weeks 60 grams 1RF
[2024-04-29 12:29] VITALS: BP 120/62; PULSE 79; RESP 16; TEMP 36.6; O2SAT 98; BMI 26.7
== END 2024-04-29 13:21 | disposition home or self-care (01) ==
PROVIDERS: PCP Family Medicine; Visit Provider Family Medicine
DX: Z00.00 Encounter for general adult medical examination without abnormal findings (principal); E03.9 Hypothyroidism, unspecified; K92.1 Melena; H66.91 Otitis media, unspecified, right ear; K64.9 Unspecified hemorrhoids; H61.21 Impacted cerumen, right ear; Z12.5 Encounter for screening for malignant neoplasm of prostate

== ENCOUNTER → 2024-04-29 12:04 | Outpatient (BNVA) | payer MEDICARE, MEDICAID, SELFPAY | PROVIDERS: PCP Family Medicine; Visit Provider Family Medicine | DX: Z00.00 Encounter for general adult medical examination without abnormal findings (principal); K64.9 Unspecified hemorrhoids; D17.1 Benign lipomatous neoplasm of skin and subcutaneous tissue of trunk; E03.9 Hypothyroidism, unspecified; K92.1 Melena; H61.20 Impacted cerumen, unspecified ear; H66.91 Otitis media, unspecified, right ear; Z12.5 Encounter for screening for malignant neoplasm of prostate | CPT/HCPCS: 96127; 99212; 99396 ==

== ENCOUNTER 2024-06-28 13:27 | Outpatient (REF) | payer MEDICARE, MEDICAID, SELFPAY ==
[2024-06-28 18:02] LABS: Anion Gap 11 (12-20); Blood Urea Nitrogen 23 mg/dL (9-16); Calcium 9.6 mg/dL (8.4-10.2); Carbon Dioxide 26 mmol/L (22-29); Chloride 107 mmol/L (96-108); Estimated Glomerular Filt Rate > 60; Glucose Random 87 mg/dL (60-115); Potassium 4.2 mmol/L (3.3-5.1); Sodium 140 mmol/L (135-145)
[2024-06-28 18:11] LABS: Free T4 (Free Thyroxine) 1.63 ng/dL (0.71-1.85); Thyroid Stimulating Hormone < 0.01 uIU/mL (0.32-4.0)
[2024-06-29 04:22] LABS: Triiodothyronine T3 Total 193 ng/dL (76-181)
== END 2024-06-28 13:28 | disposition home or self-care (01) ==
LOC: HO.WFDLDS 13:27
PROVIDERS: Visit Provider Family Medicine
DX: Z00.00 Encounter for general adult medical examination without abnormal findings (principal); E03.9 Hypothyroidism, unspecified
CPT/HCPCS: 36415; 80048; 84439; 84443; 84480

== ENCOUNTER 2024-07-02 12:49 | Outpatient (AMB) | payer MEDICARE, MEDICAID, SELFPAY ==
--- NOTE | 2024-07-02 12:46 | MHC.PC.OV ---
Intake Visit Reasons: f/u labs via telemedicine Intake Note: lab review Allergies No Known Allergies Allergy (Verified 07/02/24 12:46) Medication List - Last Reconciled 07/02/24 by Artie Campbell MD clotrimazole-betamethasone 1-0.05 % 1 appl topical BID 2 weeks fluticasone propionate 50 mcg/actuation (Flonase Allergy Relief) 1 spray intranasal Q12H levothyroxine 88 mcg PO DAILY 90 days trazodone 100 mg PO BEDTIME PRN 30 days Tobacco use date assessed: 04/29/24 Dental Screening Dental Screen Date: 04/29/24 HPI f/u labs via telemedicine HPI Details Patient?presents?to?follow-up?hypothyroidism?labs. Taking?levothyroxine?100?mcg?daily?as?prescribed. TSH?is?suppressed?and?his?T3?is?elevated. Patient?notes?that?he?has?been?feeling?warmer?lately. Otherwise?feels?well. [facility] Medical History (Updated 04/29/24 @ 13:22 by Artie Campbell MD) Lipoma of abdominal wall Bleeding hemorrhoids Hemorrhoids Hodgkin's lymphoma Surgical History (Updated 09/26/23 @ 11:30 by Fina Moreau Gerri) Status post excision of lipoma Hx of colonoscopy History of parotidectomy Cornea replaced by transplant History of surgical removal of meniscus of knee Family History Maternal Grandmother Breast cancer Cervical cancer Paternal Grandfather Colon cancer Other Mental health disorder Social History Household Members: None Housing: Apartment Are you a primary care assistant to a significant other at home: No Do you presently have visiting nurse or other home services: No Patient Tobacco Use Status: Former Tobacco user e-Cigarette/Vaping Use: Never Used Second Hand Smoke Exposure: No service: No Current occupational status: disabled Current occupational exposures/hazards: No Sexual orientation: Unable to collect Gender identity: Unable to collect Cognitive needs: No Hearing needs: No Vision needs: No Questionnaire Thrive Questionnaire Date Thrive assessed: 04/29/24 I am a: Patient What is your living situation today?: I have a steady place to live Within the past 12 months, did the food you bought not last and you didn't have the money to get more?: I choose not to answer this question Within the past 12 months, did you worry whether your food would run out before you got money to buy more?: I choose not to answer this question Do you have trouble paying for medicines?: No Do you have trouble getting transportation to medical appointments?: No Do you have trouble paying your heating and electricity bill?: No Do you have trouble taking care of your child, family member or friend?: No Do you have trouble with day-to-day activities such as bathing, preparing meals, shopping, managing finances, etc.?: No Are you currently unemployed and looking for a job?: I choose not to answer this question Are you interested in more education?: I choose not to answer this question Please select the resources that you would like help with: None Currently or been in a relationship where the following occur: No concerns reported THRIVE Score: 0 AUDIT C Alcohol Use Questionnaire (AUDIT-C) 2. How many drinks containing alcohol do you have on a typical day when you are drinking?: 5 or 6 3. How often do you have six or more drinks on one occasion?: Less than monthly Total Score: 3 SPIKE-7 AMB Questionnaire SPIKE-7 Date SPIKE - 7 assessed: 04/29/24 Source: Developed by Drs. Aamir Fitzgerald, Vanna Peters, Jelani Fox and colleagues, with an educational percy from [employer]. Review of Systems Const Denies chills, Denies fatigue, Denies fever(s), Denies headache(s) and Denies weakness ENT Denies dizziness and Denies headache(s) Card Denies chest pain, Denies lightheadedness, Denies dyspnea and Denies other (Palpitations) Resp Denies cough, Denies dyspnea, Denies wheezing and Denies other ( shortness of breath) Musc Denies numbness and Denies tingling Neuro Denies dizziness, Denies headache(s), Denies numbness, Denies tingling, Denies paresthesias and Denies weakness Psych Denies anxiety and Denies depression Endo Details: Mild?he?intolerance Denies fatigue Aller/Immun Denies wheezing Physical exam (Primary Care) Tobacco/Smoking Status: Tobacco use Status Tobacco use date assessed 04/29/24 07/02/24 12:49 Patient Tobacco Use Status Former Tobacco user 07/02/24 12:49 e-Cigarette/Vaping Use Never Used 07/02/24 12:49 Thrive Assessment: Date of Thrive Assessment Date Thrive assessed 04/29/24 07/02/24 12:49 Currently or been in a relationship where the following occur: No concerns reported Telehealth Telehealth Telehealth Platform: Telephone Location of provider rendering services: practice address Location of patient: address on file Patient Identification confirmed using: Name, : Yes Telehealth method: voice only Patient verbally consented to treatment: Yes Patient verbally consented to billing insurance company: Yes Patient informed of any privacy concerns related to visit: Yes Minutes spent on Phone/Video with Pt.: 5 Coding Level of Care Code Tele Est Pt Level 2 (01604) Diagnoses Hypothyroidism E03.9 Assessment & Plan Assessment & Plan (1) Hypothyroidism: Code(s): E03.9 - Hypothyroidism, unspecified Category: Medical Plan: TSH?is?suppressed?and?his?T3?is?elevated Will?decrease?levothyroxine?from?100?mcg?daily?to?88?mcg?daily. Will?recheck?thyroid?hormone?levels?in?about?6?weeks. Patient?notes?that?he?has?been?feeling?overheated?lately. He?will?let?me?know?if?he?still?has?these?symptoms?after?change?in?medication?in?normalization?of?is?lab?work. Orders: Orders Thyroid Stimulating Hormone Today E03.9 - Hypothyroidism, unspecified Free T4 (Free Thyroxine) Today E03.9 - Hypothyroidism, unspecified Triiodothyronine T3 Total Today E03.9 - Hypothyroidism, unspecified Basic Metabolic Panel Today E03.9 - Hypothyroidism, unspecified, Z00.00 - Encounter for general adult medical examination without abnormal findings Medications: New levothyroxine 88 mcg PO DAILY 90 days 90 tabs 3RF Discontinued levothyroxine Discontinued Reason: Doctor's Order 100 mcg PO DAILY 30 tabs 0RF E03.9 - Hypothyroidism, unspecified
== END 2024-07-02 14:57 | disposition home or self-care (01) ==
LOC: HO.HMCFM 12:49
PROVIDERS: PCP Family Medicine; Visit Provider Family Medicine
DX: E03.9 Hypothyroidism, unspecified (principal)

== ENCOUNTER 2025-02-11 14:26 | Outpatient (AMB) | payer MEDICARE, MEDICAID, SELFPAY ==
[2025-02-11 14:31] VITALS: BP 120/72; PULSE 104; TEMP 36.8; O2SAT 97; BMI 28.1
--- NOTE | 2025-02-11 14:31 | AM.OFFWIN_ITS ---
Intake Vital Signs 02/11/25 14:31 Height 5 ft 10 in Weight 196 lb BMI 28.1 BP 120/72 Blood Pressure Location Lt brachial Position Sitting Pulse 104 H Pulse Source Pulse Oximeter Temp 98.3 F Temp Source Oral Pulse Oximetry (%) 97 Oxygen Delivery Method Room Air Intake Visit Reasons: EP Allergy symptoms Intake Note: pt presents with eyes watery with swollen eyelids and crust in the mornings for over a month-OTC eye drops and allergy pills unhelpful. Also c/o sinus congestion. Itchy rash appeared at he same time as allergies flared a month ago. Patient Tobacco Use Status: Former Tobacco user Allergies No Known Allergies Allergy (Verified 02/11/25 14:31) HPI HPI Comments History of Present Illness Details History of Present Illness - The patient is a 44-year-old male pres enting with severe allergy symptoms. - Reports of extremely itchy eyelids, cr usting in the mornings, and a burning sensation in the eyes suggest allergic conjunctivitis. - Persistent symptoms despite using Xyza l, Flonase, and [id number] allergy drops. - Tried multiple antihistamines includin g Zyrtec and loratadine without relief. - Denies recent trauma to the eyes, feve r, or exposure to sick contacts. - Experiences nasal congestion consisten t with allergic rhinitis. - Has not seen an staying machine operator or undergone allergy testing. - He denies fever, chills, sore throat, ear pain, chest pain, SOB, wheezing, or cough. - He has no sick contacts or travel. - He has not seen an staying machine operator in the [facility]. Physical Exam General: Cooperative, healthy appearing, comfortable, no acute distress and well developed Orientation: Patient oriented x3 Limitations: No limitations Head: Normal to inspection Ears: Hearing grossly normal bilaterally Nose: Normal external nose present Face and sinus: Normal facial exam Eyes: Appearance normal, both eyes and all related structures. PERRLA, EOMI. Sclera is white, conjunctiva is pink. Tearing noted, no discharge noted. Eyelids are not swollen or erythematous. Neck: Normal visual inspection and Yes full ROM Respiratory: Normal respiratory effort and able to speak in complete sentences. Clear to auscultation bilaterally Cardiovascular: Regular rate and rhythm. Normal S1 and S2 GI: Normal to inspection. Soft to palpation and nontender Skin: No rashes or lesions noted Neuro: Patient oriented x3 Extremities: Normal to inspection Patient was informed and verbally consented to the use of an ambient scribe for clinic note documentation during this visit. [facility] Medical History (Updated 02/11/25 @ 15:16 by Magi Jorge PA-C) Lipoma of abdominal wall Bleeding hemorrhoids Hemorrhoids Hodgkin's lymphoma Surgical History (Updated 09/26/23 @ 11:30 by DAWN Malik) Status post excision of lipoma Hx of colonoscopy History of parotidectomy Cornea replaced by transplant History of surgical removal of meniscus of knee Family History Maternal Grandmother Breast cancer Cervical cancer Paternal Grandfather Colon cancer Other Mental health disorder Social History Household Members: None Housing: Apartment Are you a primary career placement services counselor to a significant other at home: No Do you presently have visiting nurse or other home services: No Patient Tobacco Use Status: Former Tobacco user e-Cigarette/Vaping Use: Never Used Second Hand Smoke Exposure: No service: No Current occupational status: disabled Current occupational exposures/hazards: No Sexual orientation: Unable to collect Gender identity: Unable to collect Cognitive needs: No Hearing needs: No Vision needs: No Review of Systems Const All systems reviewed & are unremarkable except as noted in HPI and below Physical Exam Vital Signs: Last Vital Signs Temp 98.3 F 02/11/25 14:31 Pulse 104 H 02/11/25 14:31 BP 120/72 02/11/25 14:31 Pulse Ox 97 02/11/25 14:31 Oxygen Delivery Method Room Air 02/11/25 14:31 BMI result Body Mass Index 28.1 Assessment & Plan Assessment & Plan (1) Allergic rhinitis: Code(s): J30.9 - Allergic rhinitis, unspecified Qualifiers: Allergic rhinitis trigger: unspecified Allergic rhinitis seasonality: unspecified Qualified Code(s): J30.9 - Allergic rhinitis, unspecified (2) Itchy eyes: Code(s): H57.9 - Unspecified disorder of eye and adnexa Plan Most likely allergic rhinitis with allergic conjunctivitis plan 1. Allergic Conjunctivitis - Prescribed allergy eye drops for symptomatic relief. - Recommended follow-up with an staying machine operator for further evaluation and possible allergy testing. 2. Allergic Rhinitis - Suggested continuation of current antihistamines and consideration of montelukast if symptoms persist. - Advised to follow up with PCP Medications: New olopatadine 0.7% (Pataday Once Daily Relief) 1 drp ophthalmic (eye) Q24H PRN 5 mL 0RF itching prednisone 40 mg (2 x 20 mg) PO DAILY 10 tabs 0RF 5 days montelukast 10 mg PO BEDTIME 30 tabs 0RF Coding Level of Care Code Est Pt Level 3 (79574) Diagnoses Allergic rhinitis, unspecified seasonality, unspecified trigger J30.9 Allergic rhinitis trigger: unspecified Allergic rhinitis seasonality: unspecified Itchy eyes H57.9
== END 2025-02-11 15:12 | disposition home or self-care (01) ==
PROVIDERS: PCP Family Medicine; Visit Provider Physician Assistant Medical
DX: J30.9 Allergic rhinitis, unspecified (principal); H57.9 Unspecified disorder of eye and adnexa

== ENCOUNTER → 2025-02-11 14:26 | Outpatient (BNVA) | payer MEDICARE, MEDICAID, SELFPAY | PROVIDERS: PCP Family Medicine; Visit Provider Physician Assistant Medical | DX: J30.9 Allergic rhinitis, unspecified (principal); H57.9 Unspecified disorder of eye and adnexa | CPT/HCPCS: 99212 ==

== ENCOUNTER 2025-05-03 12:10 | Outpatient (REF) | payer MEDICARE, MEDICAID, SELFPAY ==
[2025-05-03 13:41] LABS: Anion Gap 12 (12-20); Blood Urea Nitrogen 17 mg/dL (9-16); Calcium 9.3 mg/dL (8.4-10.2); Carbon Dioxide 26 mmol/L (22-29); Chloride 106 mmol/L (96-108); Estimated Glomerular Filt Rate > 60; Potassium 3.9 mmol/L (3.3-5.1); Sodium 140 mmol/L (135-145)
[2025-05-03 13:57] LABS: Free T4 (Free Thyroxine) 1.05 ng/dL (0.71-1.85); Thyroid Stimulating Hormone 3.76 uIU/mL (0.32-4.0)
== END 2025-05-03 12:11 | disposition home or self-care (01) ==
LOC: HO.HMGCLDS 12:10
PROVIDERS: PCP Family Medicine; Visit Provider Family Medicine
DX: Z00.00 Encounter for general adult medical examination without abnormal findings (principal); E03.9 Hypothyroidism, unspecified
CPT/HCPCS: 36415; 80048; 84439; 84443; 84480